=== PATIENT | male | born 1985 | race Caucasian/White ===

== ENCOUNTER 2018-03-05 18:55 | Emergency (ER) | payer MEDICAID, OTHER ==
[~2018-03-05] VITALS: Ht 175.3 cm; Wt 89.8 kg
[2018-03-05] MEDS ORDERED: SODIUM CHLORIDE 0.9% 1,000 ML IV ONE (21:29)
[2018-03-05 22:56] LABS: BASOPHILS % 0.7 % (0.0-2.0); EOSINOPHILS % 0.8 % (0.0-5.0); HEMOGLOBIN. 14.8 g/dL (14.0-18.0); LYMPHOCYTES % 40.5 % (20.0-50.0); MEAN CORPUSCULAR HEMOGLOBIN 33.2 pg (28.0-32.0); MEAN PLATELET VOLUME 6.8 fl (7.4-10.4); MONOCYTES % 6.9 % (2.0-8.0); NEUTROPHILS % 51.1 % (40.0-76.0); PLATELET 236 x1000/uL (130-400); RED BLOOD CELL COUNT 4.47 mill/uL (4.7-6.1); RED CELL DISTRIBUTION WIDTH 13.2 % (11.6-14.6)
[2018-03-05 23:03] LABS: CHLORIDE 105 mEq/L (98-107)
[2018-03-05 23:20] LABS: ETHANOL BLOOD 359 mg/dL
[2018-03-06 03:44] VITALS: BP 114/69
== END 2018-03-06 03:47 | disposition home or self-care (01) ==
LOC: ER 18:55
DX: F10.229 Alcohol dependence with intoxication, unspecified (principal); R79.89 Other specified abnormal findings of blood chemistry; I10 Essential (primary) hypertension; Y90.8 Blood alcohol level of 240 mg/100 ml or more
CPT/HCPCS: 36415; 70450; 80053; 82962; 85025; 96360; 96361; 99284; G0482; J7030

== ENCOUNTER 2018-09-02 12:48 | Emergency (ER) | payer MEDICAID, OTHER ==
[~2018-09-02] VITALS: Ht 172.7 cm; Wt 82.0 kg
[2018-09-02] MEDS ORDERED: SODIUM CHLORIDE 0.9% 1,000 ML IV ONE ×2 (13:26→16:06)
[2018-09-02] MEDS ORDERED: ONDANSETRON HCL 4MG/2ML INJ IV STA (13:26)
[2018-09-02] MEDS ORDERED: LEVETIRACETAM 500MG PREMIX 100 ML IV ONE (13:30)
[2018-09-02 13:34] LABS: EOSINOPHILS % 0.9 % (0.0-5.0); HEMOGLOBIN. 14.9 g/dL (14.0-18.0); LYMPHOCYTES % 35.1 % (20.0-50.0); MEAN CORPUSCULAR HEMOGLOBIN 31.9 pg (28.0-32.0); MEAN CORPUSCULAR VOLUME 92.2 fL (80.0-94.0); MEAN PLATELET VOLUME 6.7 fl (7.4-10.4); MONOCYTES % 6.2 % (2.0-8.0); NEUTROPHILS % 56.8 % (40.0-76.0); PLATELET 317 x1000/uL (130-400); RED BLOOD CELL COUNT 4.66 mill/uL (4.7-6.1); RED CELL DISTRIBUTION WIDTH 13.9 % (11.6-14.6)
[2018-09-02 13:36] LABS: CHLORIDE 104 mEq/L (98-107)
[2018-09-02 13:45] LABS: CREATINE KINASE 183 IU/L (39-308)
[2018-09-02 13:46] LABS: PHENOBARBITAL 2.3 ug/mL (15.0-40.0)
[2018-09-02 13:54] LABS: CARBAMAZEPINE < 0.5 ug/mL (4-12); ETHANOL BLOOD 511 mg/dL; VALPROIC ACID < 3.0 ug/mL (50-100)
[2018-09-02 14:43] LABS: CLARITY URINE CLEAR (CLEAR); COLOR URINE YELLOW (YELLOW); KETONES URINE NEGATIVE (NEGATIVE); LEUKOCYTE ESTERASE URINE NEGATIVE (NEGATIVE); NITRITE URINE NEGATIVE (NEGATIVE); OCCULT BLOOD URINE NEGATIVE (NEGATIVE); PROTEIN URINE NEGATIVE (NEGATIVE); SPECIFIC GRAVITY URINE 1.004 (1.005-1.030); UROBILINOGEN URINE 0.2 E.U./dL (0.2-1.0)
[2018-09-02 15:01] LABS: *AMPHETAMINES SCREEN URINE NEGATIVE (NEGATIVE); *BARBITURATES SCREEN URINE NEGATIVE (NEGATIVE); *BENZODIAZEPINES SCREEN URINE NEGATIVE (NEGATIVE); *COCAINE SCREEN URINE NEGATIVE (NEGATIVE); METHADONE URINE SCREEN NEGATIVE (NEGATIVE); OPIATES URINE SCREEN NEGATIVE (NEGATIVE)
[2018-09-02 15:02] LABS: CANNABINOID URINE SCREEN NEGATIVE (NEGATIVE); PHENCYCLIDINE URINE SCREEN NEGATIVE (NEGATIVE)
[2018-09-02] MEDS ORDERED: LORAZEPAM 2MG/ML CPJ IM ONE (16:15)
[2018-09-02 17:00] VITALS: BP 128/75
== END 2018-09-02 18:39 | disposition left against medical advice (07) ==
LOC: ER 12:48
DX: T51.0X1A Toxic effect of ethanol, accidental (unintentional), initial encounter (principal); G92 Toxic encephalopathy; S00.81XA Abrasion of other part of head, initial encounter; G40.909 Epilepsy, unspecified, not intractable, without status epilepticus; I10 Essential (primary) hypertension; Y92.488 Other paved roadways as the place of occurrence of the external cause
CPT/HCPCS: 36415; 70450; 80053; 80156; 80165; 80184; 80185; 80305; 80320; 81003; 82550; 84443; 84484; 85025; 93005; 96365; 96375; 99284; J1953; J2405; J7030; Z7610; G0480

== ENCOUNTER 2018-09-19 10:42 | Emergency (ER) | payer OTHER ==
[~2018-09-19] VITALS: Ht 177.8 cm; Wt 85.0 kg
[2018-09-19] MEDS ORDERED: SODIUM CHLORIDE 0.9% 1,000 ML IV ONE (11:01)
[2018-09-19 11:09] LABS: BASOPHILS % 1.1 % (0.0-2.0); EOSINOPHILS % 1.1 % (0.0-5.0); HEMATOCRIT. 43.9 % (42.0-52.0); HEMOGLOBIN. 15.2 g/dL (14.0-18.0); MEAN CORPUSCULAR HEMOGLOBIN 32.5 pg (28.0-32.0); MEAN PLATELET VOLUME 6.4 fl (7.4-10.4); MONOCYTES % 8.4 % (2.0-8.0); NEUTROPHILS % 47.4 % (40.0-76.0); PLATELET 274 x1000/uL (130-400); RED BLOOD CELL COUNT 4.67 mill/uL (4.7-6.1); RED CELL DISTRIBUTION WIDTH 14.5 % (11.6-14.6)
[2018-09-19 11:16] LABS: BG BASE EXCESS -3.5 mmol/L (-2.0-2.0); BG CARBOXYHEMOGLOBIN 0.6 % (0.5-1.5); BG DEOXYHEMOGLOBIN 7.3 % (0.0-5.0); BG HCO3 ACT 23.4 mmol/L (22.0-26.0); BG METHEMOGLOBIN 0.5 % (0.0-1.5); BG OXYGEN SATURATION 92.6 % (92.0-98.5); BG OXYHEMOGLOBIN 91.6 % (94.0-97.0); BG PCO2 49.3 mmHg (35.0-45.0); BG PH 7.294 (7.350-7.450); BG PO2 80.3 mmHg (75.0-100.0); BG SAMPLE SITE RIGHT RADIAL; BG TOTAL HEMOGLOBIN 14.8 g/dL (12.0-18.0); BG VENT MODE ROOM AIR
[2018-09-19 11:17] LABS: CHLORIDE 105 mEq/L (98-107)
[2018-09-19 11:43] LABS: ETHANOL BLOOD 465 mg/dL
[2018-09-19 12:41] LABS: CLARITY URINE CLEAR (CLEAR); COLOR URINE YELLOW (YELLOW); KETONES URINE NEGATIVE (NEGATIVE); LEUKOCYTE ESTERASE URINE NEGATIVE (NEGATIVE); NITRITE URINE NEGATIVE (NEGATIVE); OCCULT BLOOD URINE NEGATIVE (NEGATIVE); PH URINE 5.5 (4.5-8.0); PROTEIN URINE NEGATIVE (NEGATIVE); SPECIFIC GRAVITY URINE 1.004 (1.005-1.030); UROBILINOGEN URINE 0.2 E.U./dL (0.2-1.0)
[2018-09-19 12:54] LABS: *AMPHETAMINES SCREEN URINE NEGATIVE (NEGATIVE); *BARBITURATES SCREEN URINE NEGATIVE (NEGATIVE); *BENZODIAZEPINES SCREEN URINE NEGATIVE (NEGATIVE); CANNABINOID URINE SCREEN NEGATIVE (NEGATIVE); PHENCYCLIDINE URINE SCREEN NEGATIVE (NEGATIVE)
[2018-09-19 12:55] LABS: *COCAINE SCREEN URINE NEGATIVE (NEGATIVE); METHADONE URINE SCREEN NEGATIVE (NEGATIVE); OPIATES URINE SCREEN NEGATIVE (NEGATIVE)
[2018-09-19 18:30] VITALS: BP 122/72
== END 2018-09-19 19:30 | disposition left against medical advice (07) ==
LOC: ER 10:49
DX: T51.0X1A Toxic effect of ethanol, accidental (unintentional), initial encounter (principal); R41.82 Altered mental status, unspecified; R06.03 Acute respiratory distress; Z88.8 Allergy status to other drugs, medicaments and biological substances; Y92.89 Other specified places as the place of occurrence of the external cause
CPT/HCPCS: 36415; 36600; 71045; 80053; 80305; 80307; 80320; 80329; 81003; 82375; 82805; 85025; 93005; 96360; 99284; J7030; G0480

== ENCOUNTER 2019-03-12 22:11 | Emergency (ER) | payer OTHER ==
[~2019-03-12] VITALS: Ht 182.9 cm; Wt 113.0 kg
[2019-03-13 04:12] VITALS: BP 128/78
== END 2019-03-13 04:18 | disposition home or self-care (01) ==
LOC: ER 22:11
DX: F10.129 Alcohol abuse with intoxication, unspecified (principal); Y90.9 Presence of alcohol in blood, level not specified
CPT/HCPCS: 99283

== ENCOUNTER 2019-06-24 05:57 | Inpatient (IN) | payer MEDICAID, OTHER ==
[~2019-06-24] VITALS: Ht 180.3 cm; Wt 93.9 kg
[2019-06-24] MEDS ORDERED: ONDANSETRON HCL 4MG/2ML INJ IV STA ×2 (06:23→09:44)
[2019-06-24] MEDS ORDERED: SODIUM CHLORIDE 0.9% 1,000 ML IV ONE (06:23)
[2019-06-24 07:05] LABS: CHLORIDE 90 mEq/L (98-107)
[2019-06-24 07:07] LABS: BASOPHILS % 0.2 % (0.0-2.0); EOSINOPHILS % 0.1 % (0.0-5.0); HEMATOCRIT. 31.9 % (42.0-52.0); HEMOGLOBIN. 11.1 g/dL (14.0-18.0); LYMPHOCYTES % 12.2 % (20.0-50.0); MEAN CORPUSCULAR HEMOGLOBIN 32.1 pg (28.0-32.0); MEAN CORPUSCULAR VOLUME 91.9 fL (80.0-94.0); MEAN PLATELET VOLUME 7.7 fl (7.4-10.4); MONOCYTES % 9.8 % (2.0-8.0); NEUTROPHILS % 77.7 % (40.0-76.0); RED BLOOD CELL COUNT 3.47 mill/uL (4.7-6.1); RED CELL DISTRIBUTION WIDTH 14.9 % (11.6-14.6)
[2019-06-24 07:10] LABS: ETHANOL BLOOD 182 mg/dL
[2019-06-24 07:11] LABS: INR 1.7; PROTHROMBIN TIME 18.7 sec (9.6-11.0)
[2019-06-24 08:04] LABS: PLATELET 63 x1000/uL (130-400)
[2019-06-24] MEDS ORDERED: MORPHINE SULFATE 4 MG/ML CPJ (NOT FOR IM USE) IV STA (09:44)
[2019-06-24] MEDS ORDERED: PANTOPRAZOLE SODIUM 40 MG/VIAL IV ONE (13:00)
[2019-06-24] MEDS ORDERED: OCTREOTIDE 1,000 MCG in SODIUM CHLORIDE 0.9% 100 ML IV ONE (13:30)
[2019-06-24 15:00] VITALS: BP 115/65
[2019-06-24] MEDS ORDERED: OCTREOTIDE ACETATE 50 MCG/ML 1ML SUBCUT NR (15:00)
[2019-06-24 15:04] VITALS: BP 115/65
[2019-06-24] MEDS ORDERED: PROT20 PO (15:29)
[2019-06-24] MEDS ORDERED: LACT10SO7 PO (15:29)
[2019-06-24] MEDS ORDERED: FOLI-43 PO (15:29)
[2019-06-24] MEDS ORDERED: FERR-71 PO (15:35)
[2019-06-24] MEDS ORDERED: PROP10TA10 PO (15:35)
[2019-06-24] MEDS ORDERED: FURO-152 PO (15:35)
[2019-06-24] MEDS ORDERED: OCTREOTIDE 1,000 MCG in SODIUM CHLORIDE 0.9% 98 ML IV SCH (16:00)
[2019-06-24 16:29] LABS: HEMATOCRIT 29.7 % (42.0-52.0); HEMOGLOBIN 10.4 g/dL (14.0-18.0)
[2019-06-24] MEDS ORDERED: FENTANYL CITRATE/PF 50MCG/ML 2ML VIAL ONE (16:42)
[2019-06-24] MEDS ORDERED: MIDAZOLAM HCL 5 MG/5 ML VIAL ONE (16:42)
[2019-06-24] MEDS ORDERED: FENTANYL CITRATE/PF 50MCG/ML 2ML VIAL IV PRN (16:49)
[2019-06-24] MEDS ORDERED: DIAZEPAM 5 MG/ML 2ML CPJ IV PRN (16:50)
[2019-06-24] MEDS ORDERED: DIAZEPAM 5 MG/ML 2ML CPJ ONE (16:51)
[2019-06-24] MEDS ORDERED: MIDAZOLAM HCL 5 MG/5 ML VIAL IV PRN (16:52)
[2019-06-24] MEDS ORDERED: DIPHENHYDRAMINE 50MG/ML VIAL ONE (16:59)
[2019-06-24] MEDS ORDERED: DIPHENHYDRAMINE 50MG/ML VIAL IV PRN (17:01)
[2019-06-24] MEDS ORDERED: ACETAMINOPHEN 325MG TABLET PO PRN (18:15)
[2019-06-24 20:00] VITALS: BP 130/75
[2019-06-24] MEDS ORDERED: MVI, ADULT NO.1 10 ML, FOLIC ACID 1 MG, THIAMINE HCL 100 MG in SODIUM CHLORIDE 0.9% 1,0... IV ONE ×4 (20:00)
[2019-06-24] MEDS: ONDANSETRON HCL 4MG/2ML INJ IV PRN (21:55)
[2019-06-24] MEDS: OCTREOTIDE 1,000 MCG in SODIUM CHLORIDE 0.9% 98 ML IV SCH (21:58)
[2019-06-24] MEDS: PROPRANOLOL HCL 10MG TABLET PO SCH (22:07)
[2019-06-24 23:54] LABS: HEMATOCRIT 27.9 % (42.0-52.0); HEMOGLOBIN 9.9 g/dL (14.0-18.0)
[2019-06-25] VITALS (10 sets, daily range): BP systolic 102–121; BP diastolic 62–76
[2019-06-25] MEDS: ONDANSETRON HCL 4MG/2ML INJ IV PRN ×4 (02:26→19:03)
[2019-06-25] MEDS: MORPHINE SULFATE 2 MG/ML CPJ (NOT FOR IM USE) IV PRN ×4 (02:33→19:03)
[2019-06-25 06:02] LABS: CHLORIDE 94 mEq/L (98-107)
[2019-06-25 06:23] LABS: BASOPHILS % 0.2 % (0.0-2.0); EOSINOPHILS % 0.8 % (0.0-5.0); HEMATOCRIT. 27.7 % (42.0-52.0); HEMOGLOBIN. 9.8 g/dL (14.0-18.0); LYMPHOCYTES % 12.7 % (20.0-50.0); MEAN CORPUSCULAR HEMOGLOBIN 32.6 pg (28.0-32.0); MEAN PLATELET VOLUME 8.5 fl (7.4-10.4); MONOCYTES % 12.7 % (2.0-8.0); NEUTROPHILS % 73.6 % (40.0-76.0); RED BLOOD CELL COUNT 3.01 mill/uL (4.7-6.1); RED CELL DISTRIBUTION WIDTH 14.8 % (11.6-14.6)
[2019-06-25 07:59] LABS: PLATELET 48 x1000/uL (130-400)
[2019-06-25] MEDS ORDERED: PANTOPRAZOLE SODIUM 40 MG/VIAL IV SCH (09:00)
[2019-06-25] MEDS: PROPRANOLOL HCL 10MG TABLET PO SCH ×2 (09:00→22:11)
[2019-06-25] MEDS: OMEPRAZOLE 20MG CAPSULE EXTENDED RELEASE PO SCH (09:15)
[2019-06-25 10:03] LABS: PLATELET ESTIMATE MARKEDLY DECREASED
[2019-06-25] MEDS: OCTREOTIDE 1,000 MCG in SODIUM CHLORIDE 0.9% 98 ML IV SCH ×2 (11:30→20:41)
[2019-06-25] MEDS: LACTULOSE 20G/30ML UDC PO SCH ×2 (12:38→18:40)
[2019-06-25] MEDS: SODIUM CHLORIDE 0.9% 1,000 ML IV SCH ×2 (12:40→22:12)
[2019-06-25 21:07] LABS: HEPATITIS B SURFACE ANTIGEN NEGATIVE
[2019-06-25 21:37] LABS: HEPATITIS A AB IGM NEGATIVE (NEGATIVE)
[2019-06-26] VITALS: BP 96/54
[2019-06-26] MEDS: LACTULOSE 20G/30ML UDC PO SCH ×2 (01:31→06:44)
[2019-06-26 04:00] VITALS: BP 99/54
[2019-06-26] MEDS: SODIUM CHLORIDE 0.9% 1,000 ML IV SCH (06:43)
[2019-06-26 07:29] LABS: BASOPHILS % 0.2 % (0.0-2.0); EOSINOPHILS % 2.8 % (0.0-5.0); HEMATOCRIT. 27.3 % (42.0-52.0); HEMOGLOBIN. 9.6 g/dL (14.0-18.0); LYMPHOCYTES % 18.3 % (20.0-50.0); MEAN CORPUSCULAR HEMOGLOBIN 32.8 pg (28.0-32.0); MEAN CORPUSCULAR VOLUME 93.3 fL (80.0-94.0); MONOCYTES % 12.4 % (2.0-8.0); NEUTROPHILS % 66.3 % (40.0-76.0); PLATELET 64 x1000/uL (130-400); RED BLOOD CELL COUNT 2.92 mill/uL (4.7-6.1); RED CELL DISTRIBUTION WIDTH 14.9 % (11.6-14.6)
[2019-06-26 07:41] LABS: CHLORIDE 97 mEq/L (98-107)
[2019-06-26 08:00] VITALS: BP 101/54
[2019-06-26] MEDS: PROPRANOLOL HCL 10MG TABLET PO SCH (08:08)
[2019-06-26] MEDS: OMEPRAZOLE 20MG CAPSULE EXTENDED RELEASE PO SCH (08:08)
[2019-06-26] MEDS ORDERED: LACTULOSE 20G/30ML UDC PO SCH (12:00)
[2019-06-26] MEDS ORDERED: POTASSIUM CHLORIDE 20MEQ TABLET SR PO NR (13:00)
[2019-06-26 13:01] VITALS: BP 95/50
== END 2019-06-26 13:58 | disposition home or self-care (01) | DRG 242 ==
LOC: ER 05:57 → 7WST 11:28 → ENRESERV 13:20
PROVIDERS: ADMIT Internal Medicine; ATTEND Internal Medicine
PROC: 06L38CZ Occlusion of Esophageal Vein with Extraluminal Device, Via Natural or Artificial Opening Endoscopic (ICD-10-PCS; principal; 2019-06-24)
DX: I85.01 Esophageal varices with bleeding (principal); D68.9 Coagulation defect, unspecified; K22.11 Ulcer of esophagus with bleeding; K83.1 Obstruction of bile duct; D69.6 Thrombocytopenia, unspecified; E87.1 Hypo-osmolality and hyponatremia; E88.09 Other disorders of plasma-protein metabolism, not elsewhere classified; K76.6 Portal hypertension; F10.229 Alcohol dependence with intoxication, unspecified; K74.60 Unspecified cirrhosis of liver; E87.6 Hypokalemia; K31.89 Other diseases of stomach and duodenum; K70.10 Alcoholic hepatitis without ascites
CPT/HCPCS: 36415; 74176; 76700; 80053; 80076; 80320; 82105; 82140; 82248; 85014; 85018; 85025; 86705; 86709; 86803; 86850; 86900; 86927; 87340; C9113; J1200; J2250; J2270; J2354; J2405; J3010; J3411; J3490; J7030; J7050; P9017; G0480

== ENCOUNTER 2019-08-30 18:03 | Inpatient (IN) | payer MEDICAID, OTHER ==
[~2019-08-30] VITALS: Ht 180.3 cm; Wt 84.4 kg
[~2019-08-30 18:03] MED LIST: FERR-71 PO; FOLI-43 PO; FURO-152 PO; LACT10SO7 PO; PROP10TA10 PO; PROT20 PO
[2019-08-30] MEDS ORDERED: ONDANSETRON HCL 4MG/2ML INJ IV STA (18:26)
[2019-08-30] MEDS ORDERED: OCTREOTIDE 1,000 MCG in SODIUM CHLORIDE 0.9% 100 ML IV STA (18:26)
[2019-08-30] MEDS ORDERED: OCTREOTIDE ACETATE 50 MCG/ML 1ML IV STA (18:26)
[2019-08-30] MEDS ORDERED: PANTOPRAZOLE SODIUM 40 MG/VIAL IV STA (18:26)
[2019-08-30] MEDS ORDERED: PANTOPRAZOLE 80 MG in SODIUM CHLORIDE 0.9% 100 ML IV STA (18:26)
[2019-08-30] MEDS ORDERED: SODIUM CHLORIDE 0.9% 1000ML BAG (SEPSIS BOLUS) IV ONE (18:30)
[2019-08-30] MEDS ORDERED: PANTOPRAZOLE SODIUM 40 MG/VIAL IV ONE (18:39)
[2019-08-30 18:42] LABS: BASOPHILS % 0.3 % (0.0-2.0); EOSINOPHILS % 0.3 % (0.0-5.0); MEAN CORPUSCULAR HEMOGLOBIN 30.6 pg (28.0-32.0); MEAN CORPUSCULAR VOLUME 94.4 fL (80.0-94.0); MEAN PLATELET VOLUME 8.4 fl (7.4-10.4); MONOCYTES % 5.9 % (2.0-8.0); NEUTROPHILS % 85.5 % (40.0-76.0); PLATELET 126 x1000/uL (130-400); RED BLOOD CELL COUNT 1.94 mill/uL (4.7-6.1); RED CELL DISTRIBUTION WIDTH 27.6 % (11.6-14.6)
[2019-08-30 18:44] LABS: HEMATOCRIT. 18.4 % (42.0-52.0)
[2019-08-30 18:48] LABS: CHLORIDE 106 mEq/L (98-107)
[2019-08-30 18:53] LABS: INR 2.2
[2019-08-30] MEDS ORDERED: PIPERACILLIN/TAZ 3.375G PREMIX 50 ML IV SCH (19:00)
[2019-08-30 20:31] LABS: PLATELET ESTIMATE NORMAL
[2019-08-31 00:29] LABS: CLARITY URINE CLEAR (CLEAR); COLOR URINE DARK YELLOW (YELLOW); KETONES URINE NEGATIVE (NEGATIVE); LEUKOCYTE ESTERASE URINE TRACE (NEGATIVE); NITRITE URINE NEGATIVE (NEGATIVE); OCCULT BLOOD URINE NEGATIVE (NEGATIVE); PH URINE 5.5 (4.5-8.0); PROTEIN URINE NEGATIVE (NEGATIVE); SPECIFIC GRAVITY URINE 1.016 (1.005-1.030); UROBILINOGEN URINE 0.2 E.U./dL (0.2-1.0)
[2019-08-31] MEDS ORDERED: SODIUM CHLORIDE 0.9% 1,000 ML IV SCH (05:15)
[2019-08-31 05:46] VITALS: BP 107/60
[2019-08-31] MEDS ORDERED: PANTOPRAZOLE 80 MG in SODIUM CHLORIDE 0.9% 100 ML IV SCH (06:00)
[2019-08-31] MEDS ORDERED: PIPERACILLIN/TAZOBACTAM 3.375 G/VIAL IV SCH (06:00)
[2019-08-31] MEDS: PIPERACILLIN/TAZOBACTAM 3.375 G in DEXT 5% WATER 100 ML IV SCH ×2 (06:20→13:39)
[2019-08-31] MEDS ORDERED: OCTREOTIDE 1,000 MCG in SODIUM CHLORIDE 0.9% 98 ML IV SCH (07:00)
[2019-08-31 08:00] VITALS: BP 99/60
[2019-08-31 09:01] LABS: BASOPHILS % 0.4 % (0.0-2.0); EOSINOPHILS % 0.4 % (0.0-5.0); HEMATOCRIT. 23.6 % (42.0-52.0); HEMOGLOBIN. 7.9 g/dL (14.0-18.0); LYMPHOCYTES % 12.9 % (20.0-50.0); MEAN CORPUSCULAR HEMOGLOBIN 29.6 pg (28.0-32.0); MEAN CORPUSCULAR VOLUME 88.7 fL (80.0-94.0); MEAN PLATELET VOLUME 8.4 fl (7.4-10.4); MONOCYTES % 6.7 % (2.0-8.0); NEUTROPHILS % 79.6 % (40.0-76.0); PLATELET 93 x1000/uL (130-400); RED BLOOD CELL COUNT 2.66 mill/uL (4.7-6.1); RED CELL DISTRIBUTION WIDTH 24.9 % (11.6-14.6)
[2019-08-31 10:00] VITALS: BP 88/48
[2019-08-31 12:00] VITALS: BP 107/66
[2019-08-31 14:00] VITALS: BP 113/59
== END 2019-08-31 15:56 | disposition left against medical advice (07) | DRG 242 ==
LOC: ER 18:03 → EDBEDREQ 18:29 → EDBEDREQTM 19:08 → MICUSO 20:24 → EDBEDREQTM 20:32 → EDBEDREQ 20:32 → 5EST 08-31 03:42
PROVIDERS: ADMIT Internal Medicine; ATTEND Internal Medicine
PROC: 30233K1 Transfusion of Nonautologous Frozen Plasma into Peripheral Vein, Percutaneous Approach (ICD-10-PCS; principal; 2019-08-30)
PROC: 30233N1 Transfusion of Nonautologous Red Blood Cells into Peripheral Vein, Percutaneous Approach (ICD-10-PCS; 2019-08-30)
DX: I85.11 Secondary esophageal varices with bleeding (principal); D68.9 Coagulation defect, unspecified; D69.6 Thrombocytopenia, unspecified; K83.1 Obstruction of bile duct; E87.2 Acidosis; K76.6 Portal hypertension; K70.30 Alcoholic cirrhosis of liver without ascites; K70.10 Alcoholic hepatitis without ascites; K31.89 Other diseases of stomach and duodenum; F17.200 Nicotine dependence, unspecified, uncomplicated; J45.909 Unspecified asthma, uncomplicated; F10.20 Alcohol dependence, uncomplicated; B18.2 Chronic viral hepatitis C; N28.9 Disorder of kidney and ureter, unspecified; Z53.29 Procedure and treatment not carried out because of patient's decision for other reasons
CPT/HCPCS: 36415; 71045; 80048; 80053; 81003; 82962; 83605; 84484; 85025; 86850; 86900; 86920; 86927; 93005; 96365; 99291; C9113; J2354; J2405; J2543; J7030; J7050; J7060; P9016; P9017